=== PATIENT | male | born 1980 ===

== ENCOUNTER 2017-05-24 19:50 | Emergency (ER) | payer BC ==
[~2017-05-24] VITALS: Ht 170.2 cm; Wt 72.7 kg
[~2017-05-24 19:50] MED LIST: NO HOME MEDICATIONS
[2017-05-24 19:54] VITALS: BP 134/87; TEMP 97.4
[2017-05-24 22:21] VITALS: PULSE 80
== END 2017-05-24 22:22 | disposition home or self-care (01) ==
LOC: COL.ER 19:50
DX: S61.511A Laceration without foreign body of right wrist, initial encounter (principal); F17.210 Nicotine dependence, cigarettes, uncomplicated; Z23 Encounter for immunization; W26.8XXA Contact with other sharp object(s), not elsewhere classified, initial encounter; Y92.009 Unspecified place in unspecified non-institutional (private) residence as the place of occurrence of the external cause

== ENCOUNTER 2017-06-01 21:37 | Emergency (ER) | payer BC ==
[2017-06-01 21:44] VITALS: BP 123/77; PULSE 74; TEMP 97.6
== END 2017-06-01 21:47 | disposition home or self-care (01) ==
LOC: COL.ER 21:37
DX: S61.511D Laceration without foreign body of right wrist, subsequent encounter (principal); X58.XXXD Exposure to other specified factors, subsequent encounter

== ENCOUNTER 2018-11-13 02:50 | Observation (INO) | payer SELFPAY ==
[~2018-11-13] VITALS: Ht 170.2 cm; Wt 75.8 kg
[2018-11-13 03:24] VITALS: BP 109/76; PULSE 61; TEMP 98.2
[2018-11-13 04:00] VITALS: BP 110/76; PULSE 75; TEMP 97.9
--- NOTE | 2018-11-13 06:24 | NUR ---
PT ADMITTED TO ROOM 348. DIRECT ADMIT FROM [place]. SEE 5 PAGE ADMISSION ASSESSMENT.
--- NOTE | 2018-11-13 08:00 | NUR ---
Patient resting in bed, at bedside. Patient is alert and oriented, answers questions appropriately. IVF to [facility] per order. Patient denies needs, call light within reach.
[2018-11-13 08:05] VITALS: BP 98/66; PULSE 72; TEMP 97.9
--- NOTE | 2018-11-13 11:35 | NUR ---
Patient and provided dishcarge teaching. Importance of making and keeping follow up appointment was stressed, phone number and instructions given. Patient given script for antibiotic, importance of filling prescription and taking medication as ordered was stressed. Dischrge instructions given. Patient and deny questions or needs. IV from [facility] discontinued, hemostasis achieved. Patient and escorted to ED entrance.
== END 2018-11-13 11:35 | disposition home or self-care (01) ==
LOC: COL.ER 02:50 → SURG 02:59
PROVIDERS: ADMIT Surgery
DX: K57.32 Diverticulitis of large intestine without perforation or abscess without bleeding (principal); Z87.891 Personal history of nicotine dependence
CPT/HCPCS: G0378; J2543; J7120

== ENCOUNTER → 2018-11-13 | Outpatient (CLI) | payer BC | LOC: COL.RAD 00:30 | DX: K57.32 Diverticulitis of large intestine without perforation or abscess without bleeding (principal) | CPT/HCPCS: Q9967 ==